=== PATIENT | male | born 1980 | race Caucasian/White ===

== ENCOUNTER 2021-08-22 07:13 | Outpatient (CLI) | payer MEDICAID, SELFPAY ==
[2021-08-22 07:05] VITALS: BP 106/71; PULSE 113; RESP 16; TEMP 37.3; O2SAT 97; BMI 40.3
[2021-08-22 07:55] VITALS: BP 108/64; PULSE 80; RESP 18; TEMP 37.1; O2SAT 92
[2021-08-22 08:55] VITALS: BP 111/76; PULSE 87; RESP 18; TEMP 36.9; O2SAT 94
== END 2021-08-22 07:14 | disposition home or self-care (01) ==
LOC: OPS 07:15
PROVIDERS: PCP Physician Assistant; Visit Provider Nurse Practitioner
DX: U07.1 COVID-19 (principal)
CPT/HCPCS: 96365

== ENCOUNTER 2021-09-15 22:31 | Emergency (ER) | payer MEDICAID, SELFPAY ==
[2021-09-15 22:50] VITALS: BP 126/89; PULSE 122; RESP 18; TEMP 36.9; O2SAT 94; BMI 38.7
--- NOTE | 2021-09-15 23:00 | W.ED.NAVMDI ---
HPI - Nausea/Vomiting/Diarrhea General: Chief complaint: Nausea/Vomiting/Diarrhea Stated complaint: n/v post eating bad mushrooms Time Seen by Provider: 09/15/21 22:34 Source: patient Mode of arrival: ambulatory Limitations: no limitations History of Present Illness: HPI Narrative: 41-year-old male who patient was eating mushrooms and then found out that he had actually taken Mehreen and mushrooms daughter Elicia Turner. He states he ate about 7:00 starting roughly 2 to 3 hours ago he started having severe nausea vomiting. His ate the same mushrooms and here with similar complaints as well. He has got some abdominal cramping. Denies any fevers. Associated nausea: Yes Associated symtoms: Reports nausea; Denies chest pain, dysuria or headache(s) Review of Systems Const: Denies: fever(s), chills, body aches or change in appetite Eyes: Denies: blurry vision or eye discomfort ENMT: Denies: throat pain or dental pain Card: Denies: chest pain Resp: Denies: dyspnea GI: Reports: nausea and vomiting : Denies: dysuria Musc: Denies: neck pain or back pain Skin/Breast: Denies: rash Neuro: Denies: headache(s) Psych: Denies: depression Alexis/Lymph: Denies: easy bruising All/Imm: Denies: urticaria PFS ED PFSH: Social History (Updated 12/04/19 @ 16:28 by Mary Kenny RN) Smoking and tobacco status: never smoked Physical Exam Const: COMMON NORMALS: no acute distress, patient oriented x3 and healthy appearing HENMT: COMMON NORMALS: normocephalic and atraumatic HEAD & SCALP: normocephalic and atraumatic Eye: COMMON NORMALS: Equal, round and reactive pupils present and EOMs intact bilaterally PUPIL: Yes Equal, round and reactive pupils present Neck/C-Spine: COMMON NORMALS: full ROM and supple Chest: COMMONS NORMALS: normal inspection of the chest and normal palpation of entire chest wall Resp: COMMON NORMALS: normal respiratory effort, No retractions, No use of accessory muscles and clear to auscultation bilaterally AUSCULTATION: clear to auscultation bilaterally Cardio: COMMON NORMALS: regular rate, regular rhythm and No murmurs present (Cardio) RATE: regular rate RHYTHM: regular rhythm GI: COMMON NORMALS: Normal to inspection, nondistended, normoactive bowel sounds present, Soft to palpation, non-tender and no masses PALPATION: Yes Soft to palpation Extremity: COMMON NORMALS: normal to inspection and full ROM Neuro: COMMON NORMALS: patient oriented x3, moves all extremities and no focal motor deficits Psych: COMMON NORMALS: mental status grossly normal, Normal thought process present and cooperative THOUGHT PROCESS: Normal thought process present Skin: COMMON NORMALS: no rashes or lesions noted and no wounds GENERAL SKIN EXAM: no rashes or lesions noted Course Vital Signs: Vital signs: Vital Signs Temperature 98.4 F 09/15/21 22:50 Pulse Rate 106 H 09/15/21 23:45 Respiratory Rate 18 09/15/21 23:45 Blood Pressure 124/77 09/15/21 23:45 Pulse Oximetry 92 09/15/21 23:45 MDM - Nausea/Vomiting/Diarrhea MDM Narrative: Medical decision making narrative: Patient presents here with vomiting from food poisoning. He is well-appearing here and has no signs of any toxic effects he feels improved here after Reglan. Will prescribe Zofran for home he is to follow-up with PCP and return if worsening. Lab Data: Labs: Lab Results 09/15/21 09/15/21 23:20 23:20 WBC 16.9 10^3/uL H 10 ^3/uL (4.0-10.0) RBC 4.72 10^6/uL 10^6 /uL (4.1-5.3) Hgb 14.9 g/dL g/dL (11.7-16.6) Hct 43.2 % % (42.0-52.0) MCV 91.5 fl fl (80-94) MCH 31.6 pg pg (28.0-34.0) MCHC 34.5 g/dL g/dL (30.0-36.0) RDW 13.8 % % (12.1-15.1) Plt Count 431 10^3/cmm H 10 ^3/cmm (130-400) MPV 9.5 fL fL (7.4-10.4) Neut % (Auto) 66.8 % % Lymph % (Auto) 25.1 % % [place] % (Auto) 5.9 % % Eos % (Auto) 1.1 % % Baso % (Auto) 0.6 % % Neut # (Auto) 11.29 10^3/uL H 1 0^3/uL (1.8-7.7) Lymph # (Auto) 4.3 10^3/uL 10^3/ uL (0.8-4.8) [place] # (Auto) 1.0 10^3/uL H 10^ 3/uL (0.2-0.9) Eos # (Auto) 0.2 10^3/uL 10^3/ uL (0.0-0.8) Baso # (Auto) 0.1 10^3/uL 10^3/ uL (0.0-0.1) Nucleated RBC % (a uto) 0 % % Nucleated RBCs # 0.0 /100WBC /100W BC Sodium 141 mmol/L mmol/L (136-145) Potassium 3.5 mmol/L mmol/L (3.5-5.1) Chloride 106 mmol/L mmol/L (98-107) Carbon Dioxide 23 mmol/L mmol/L (22-29) Anion Gap 15.5 (5-19) BUN 13 mg/dL mg/dL (6-20) Creatinine 0.7 mg/dL mg/dL (0.7-1.2) GFR Calculation 123.7 mL/min mL/m in (90-130) Glucose 186 mg/dL H mg/dL (65-115) Calculated Osmolal ity 297 mOsm/kg H mOs m/kg (285-295) Calcium 8.2 mg/dL L mg/dL (8.5-10.5) Total Bilirubin 0.3 mg/dL mg/dL (0.15-1.2) AST 19 U/L U/L (0-40) ALT 31 U/L U/L (0-41) Alkaline Phosphata se 80 IU/L IU/L (40-130) Total Protein 6.6 g/dL g/dL (6.6-8.7) Albumin 3.9 g/dL g/dL (3.5-5.2) Globulin 2.7 g/dL g/dL (1.3-4.6) Discharge Plan Discharge Patient Disposition: Home Clinical Impression: Food poisoning, Vomiting Condition: Stable Prescriptions: New ondansetron 4 mg tablet,disintegrating 4 mg PO Q6H PRN (Reason: nausea and vomiting) Qty: 14 RF: 0 No Action azithromycin 250 mg tablet See Rx Instructions PO .COMPLEX Qty: 6 RF: 0 Discharge Orders: Discharge ED (Routine); Ordered 09/16/21 Ordered By: Moises Gage Referrals: Yisel Leon PA [Primary Care Provider] - 1-3 days Discharge Diet: Advance as tolerated Discharge Activity: Resume usual activity Patient Instructions: Acute Nausea and Vomiting (ED) Coding Level of Care Code ED Processor Solid Propellant for Chg Fwd Exam Comprehensive
[2021-09-15 23:34] LABS: Basophils # 0.1 10^3/uL (0.0-0.1); Basophils % 0.6 %; Eosinophils # 0.2 10^3/uL (0.0-0.8); Eosinophils % 1.1 %; Hematocrit 43.2 % (42.0-52.0); Hemoglobin 14.9 g/dL (11.7-16.6); Lymphocytes # 4.3 10^3/uL (0.8-4.8); Lymphocytes % 25.1 %; Mean Corpuscular HGB Conc 34.5 g/dL (30.0-36.0); Mean Corpuscular Hemoglobin 31.6 pg (28.0-34.0); Mean Corpuscular Volume 91.5 fl (80-94); Mean Platelet Volume 9.5 fL (7.4-10.4); Monocytes % 5.9 %; Neutrophils # 11.29 10^3/uL (1.8-7.7); Neutrophils % 66.8 %; Nucleated Red Blood Cells % 0 %; Platelet Count 431 10^3/cmm (130-400); Red Blood Count 4.72 10^6/uL (4.1-5.3); Red Cell Distribution Width 13.8 % (12.1-15.1); White Blood Count 16.9 10^3/uL (4.0-10.0)
[2021-09-15] MEDS: ondansetron 2 mg/ML SDV 2 mL 4 MG IVP (23:39)
[2021-09-15] MEDS: sodium chloride 0.9% 1,000 ML 999 ML IV (23:40)
[2021-09-15] MEDS: metoclopramide 5 mg/mL SDV 2 mL 10 MG IVP (23:42)
[2021-09-15] MEDS: diphenhydrAMINE 50 mg/mL SDV 1mL IVP (23:42)
[2021-09-15 23:45] VITALS: BP 124/77; PULSE 106; RESP 18; O2SAT 92
--- NOTE | 2021-09-15 23:49 | PC.NURSE ---
pt states that he was driving down the road and pulled over for some mushrooms. Pt and his family took them home and cooked them and ate them. Pt and family members became sick and started vomiting.
[2021-09-15 23:59] LABS: Alanine Aminotransferase 31 U/L (0-41); Albumin Level 3.9 g/dL (3.5-5.2); Alkaline Phosphatase 80 IU/L (40-130); Anion Gap 15.5 (5-19); Aspartate Amino Transferase 19 U/L (0-40); Blood Urea Nitrogen 13 mg/dL (6-20); Calcium 8.2 mg/dL (8.5-10.5); Carbon Dioxide 23 mmol/L (22-29); Chloride 106 mmol/L (98-107); Globulin 2.7 g/dL (1.3-4.6); Glomerular Filtration Rate 123.7 mL/min (90-130); Glucose 186 mg/dL (65-115); Osmolality Calculated 297 mOsm/kg (285-295); Potassium 3.5 mmol/L (3.5-5.1); Sodium 141 mmol/L (136-145); Total Bilirubin 0.3 mg/dL (0.15-1.2); Total Protein 6.6 g/dL (6.6-8.7)
[2021-09-16 01:05] VITALS: BP 120/60; PULSE 80; RESP 18; O2SAT 91
== END 2021-09-16 01:07 | disposition home or self-care (01) ==
PROVIDERS: Emergency Provider Emergency Medicine; PCP Physician Assistant
DX: A05.9 Bacterial foodborne intoxication, unspecified (principal)
CPT/HCPCS: 80053; 85025; 96361; 96374; 96375; 99284; J1200; J2405; J2765; J7030

== ENCOUNTER 2023-01-08 09:45 | Emergency (ER) | payer MEDICAID, SELFPAY ==
[2023-01-08 09:57] VITALS: BP 127/72; PULSE 76; RESP 16; TEMP 36.7; O2SAT 97
--- NOTE | 2023-01-08 10:26 | XRR_ITS ---
PROCEDURE INFORMATION: Exam: XR Lumbosacral Spine Exam date and time: 01/08/2023 11:40 AM Age: 42 years old Clinical indication: Low back pain TECHNIQUE: Imaging protocol: Radiologic exam of the lumbosacral spine. Views: 2 or 3 views. COMPARISON: CR XR lumbar spine min 4V [id number] 11/18/2022 11:27 AM FINDINGS: Bones/joints: No fracture, malalignment or other acute abnormality is seen in the lumbar spine. Mild degenerative changes are present with mild disc space narrowing and scattered osteophytes. Soft tissues: Unremarkable. XR/XR lumbar spine 2-3V* [id number] IMPRESSION: No acute abnormality.
[2023-01-08 14:40] LABS: Add Urine Microscopic? NO; Charge for UA Resulting for Rev
[2023-01-08 15:16] LABS: Bilirubin Urine Neg (Negative); Blood Urine Neg (Negative); Glucose Urine UA 4+ (Normal); Ketones Urine Negative (Negative); Leukocyte Esterase Urine Negative (Negative); Nitrate Urine Negative (Negative); Protein Urine Neg (Negative); Urine Appearance Clear (CLEAR); Urine Color Yellow (Yellow); Urobilinogen Urine Neg (Negative); pH Urine 6 (5-7)
--- NOTE | 2023-01-08 15:18 | W.ED.BACK ---
Documented by User: LUIS Olson 01/08/23 15:46 HPI - Back Pain/Injury General: Chief Complaint: Back Pain/Injury Stated Complaint: Back pain Time Seen by Provider: 01/08/23 10:30 History of Present Illness: Patient is in for low back pain x4 days. Patient reports that he was walking on the ice on Thursday and slipped but did not fall. He reports that his back has been hurting progressively worse since that time. He reports it is worse with twisting or trying to turn or roll over in bed. He denies any traumatic injury to the back. He denies fever, chills, nausea, vomiting. He denies any pain with urination, burning, frequency. He denies saddle anesthesia, loss of bowel or bladder continence. He denies any history of kidney stones. Associated symptoms: Deny abdominal pain, chills, dysuria, fever(s), nausea, urinary urgency or vomiting Review of Systems Const: Denies: fever(s), chills or body aches Resp: Denies: dyspnea, productive cough or non-productive cough GI: Denies: abdominal pain, nausea or vomiting : Denies: flank pain, dysuria, urinary frequency, urinary urgency or urinary hesitancy Musc: Reports: back pain Neuro: Denies: headache(s), numbness in extremities or weakness in extremities PFSH ED PFSH: Social History Smoking and tobacco status: never smoked Physical Exam Const: COMMON NORMALS: patient oriented x3 and alert OTHER: Patient is angry when I walked in the room to do the exam because of his wait time at the ER. He is frustrated with questions I am asking for the HPI. Resp: COMMON NORMALS: normal respiratory effort and No use of accessory muscles Back/Pelvis: OTHER: Patient points to his mid low back as his area of concern. There is no obvious bony or soft tissue deformity appreciated to the lumbar region. No lumbar vertebral point tenderness appreciated, no step-offs appreciated. Palpation of the area does not reproduce pain complaint. Turning side to side reproduces patient's pain complaint. Patient is standing and has a normal gait. Neuro: COMMON NORMALS: patient oriented x3 SENSORIUM/ORIENTATION: Yes alert Course Vital Signs: Vital signs: Vital Signs Temperature 98.1 F 01/08/23 09:57 Pulse Rate 78 01/08/23 15:59 Respiratory Rate 16 01/08/23 15:59 Blood Pressure 132/74 01/08/23 15:59 Pulse Oximetry 99 01/08/23 15:59 Oxygen Delivery Me thod 01/08/23 09:57 MDM - Back Pain/Injury Medical Decision Making Differentials include lumbago, lumbar strain, bulging disc, disc herniation, glucosuria, renal stone Urine is negative for hematuria and patient does not have CVA tenderness making renal stone less likely Patient does not exhibit any neurologic symptoms of spinal cord compression. Patient is standing and bearing weight with a normal gait. X-ray does not show any acute abnormality. I advised patient that I recommend conservative treatment with NSAIDs and muscle relaxant medications. Patient becomes very angry and states that this is not a muscle issue. He wants an MRI or something done now . We discussed typical process and evaluation of back pain. We discussed red flags for acute or emergent symptoms of back pain and that he does not exhibit any at this time. We discussed conservative treatment and typical course of follow-up following up with primary care provider and if pain is persisting pursuing possible evaluation with an MRI on an outpatient basis. Patient was agreeable but then made the statement that he and his will be driving to [facility] so somebody would do something now . Norflex and Toradol is administered here today. I withheld steroid at this time. Patient has 4+ glucose in his urine and reports that he wants no further evaluation of this at this time because he is being evaluated for prediabetes and he already knows its there. He states that he ate just before coming in. Patient's spouse is here to drive him. Advised him to follow-up with primary care provider. Return to the ER as needed for new or worsening symptoms. Patient is discharged in stable condition. Patient is angry but calm. Labs Radiology Impressions Lumbar Spine X-Ray 01/08/23 10:26 IMPRESSION: No acute abnormality. Laboratory Results Urine Color Yellow (Yellow) 01/08/23 14:34 Urine Appearance Clear (CLEAR) 01/08/23 14:34 Urine pH 6 (5-7) 01/08/23 14:34 Ur Specific [place] 1.020 (1.005-1.030) 01/08/23 14:34 Urine Protein Neg (Negative) 01/08/23 14:34 Urine Glucose (UA) 4+ (Normal) H 01/08/23 14:34 Urine Ketones Negative (Negative) 01/08/23 14:34 Urine Blood Neg (Negative) 01/08/23 14:34 Urine Nitrate Negative (Negative) 01/08/23 14:34 Urine Bilirubin Neg (Negative) 01/08/23 14:34 Urine Urobilinogen Neg mg/dL (Negative) 01/08/23 14:34 Ur Leukocyte Esterase Negative (Negative) 01/08/23 14:34 Discharge Plan Discharge Patient Disposition: Home Clinical Impression: Strain of lumbar region Condition: Stable Prescriptions: New cyclobenzaprine 10 mg tablet 10 mg PO TID PRN (Reason: muscle spasm) Qty: 6 0RF Rx Instructions: not to start until 01/09/2023 No Action azithromycin 250 mg tablet See Rx Instructions PO .COMPLEX Qty: 6 0RF Rx Instructions: take 500 mg today (day 1), then 250 mg for 4 days (days 2-5) PO ondansetron 4 mg tablet,disintegrating 4 mg PO Q6H PRN (Reason: nausea and vomiting) Qty: 14 0RF Discharge Orders: Discharge ED (Routine); Ordered 01/08/23 Ordered By: Ely Sauer Referrals: Yisel Leon PA [Primary Care Provider] - Discharge Diet: Usual diet Discharge Activity: Increase activity as tolerated Patient Instructions: Muscle Strain (ED), Lower Back Exercises (ED) Activity Restrictions/Additional Instructions: Your x-rays did not show any acute abnormality. I recommend conservative treatment doing conservative treatments to include alternating ice and heat, rest, nonsteroidal anti-inflammatories, muscle relaxant medications. You received a muscle relaxant medication and Toradol in the ER tonight. Do not start ibuprofen or your muscle relaxer prescription until tomorrow 01/09/2023. Do not drive after taking a muscle relaxer, do not drink alcohol with muscle relaxers, do not take any other medications that make you sleepy with this medication. I recommend gentle stretches. Warm moist heat. Follow-up with your primary care provider next week for continued evaluation and determination of further plan of care. Return to the ER as needed for any new or worsening symptoms Coding Level of Care Code ED Side Stitching Machine Operator for Chg Fwd Documented by User: Tigre Winkler DO 01/13/23 07:36 HPI - Back Pain/Injury General: Chief Complaint: Back Pain/Injury Stated Complaint: Back pain Time Seen by Provider: 01/08/23 10:30 PFSH ED PFSH: Social History Smoking and tobacco status: never smoked Course Vital Signs: Vital signs: Vital Signs Temperature 98.1 F 01/08/23 09:57 Pulse Rate 78 01/08/23 15:59 Respiratory Rate 16 01/08/23 15:59 Blood Pressure 132/74 01/08/23 15:59 Pulse Oximetry 99 01/08/23 15:59 Oxygen Delivery Me thod 01/08/23 09:57 MDM - Back Pain/Injury Medical Decision Making Differentials include lumbago, lumbar strain, bulging disc, disc herniation, glucosuria, renal stone Urine is negative for hematuria and patient does not have CVA tenderness making renal stone less likely Patient does not exhibit any neurologic symptoms of spinal cord compression. Patient is standing and bearing weight with a normal gait. X-ray does not show any acute abnormality. I advised patient that I recommend conservative treatment with NSAIDs and muscle relaxant medications. Patient becomes very angry and states that this is not a muscle issue. He wants an MRI or something done now . We discussed typical process and evaluation of back pain. We discussed red flags for acute or emergent symptoms of back pain and that he does not exhibit any at this time. We discussed conservative treatment and typical course of follow-up following up with primary care provider and if pain is persisting pursuing possible evaluation with an MRI on an outpatient basis. Patient was agreeable but then made the statement that he and his will be driving to [place] so somebody would do something now . Norflex and Toradol is administered here today. I withheld steroid at this time. Patient has 4+ glucose in his urine and reports that he wants no further evaluation of this at this time because he is being evaluated for prediabetes and he already knows its there. He states that he ate just before coming in. Patient's spouse is here to drive him. Advised him to follow-up with primary care provider. Return to the ER as needed for new or worsening symptoms. Patient is discharged in stable condition. Patient is angry but calm. Chart reviewed and patient discussed with midlevel. Agree with assessment and plan. Labs Radiology Impressions Lumbar Spine X-Ray 01/08/23 10:26 IMPRESSION: No acute abnormality. Laboratory Results Urine Color Yellow (Yellow) 01/08/23 14:34 Urine Appearance Clear (CLEAR) 01/08/23 14:34 Urine pH 6 (5-7) 01/08/23 14:34 Ur Specific [place] 1.020 (1.005-1.030) 01/08/23 14:34 Urine Protein Neg (Negative) 01/08/23 14:34 Urine Glucose (UA) 4+ (Normal) H 01/08/23 14:34 Urine Ketones Negative (Negative) 01/08/23 14:34 Urine Blood Neg (Negative) 01/08/23 14:34 Urine Nitrate Negative (Negative) 01/08/23 14:34 Urine Bilirubin Neg (Negative) 01/08/23 14:34 Urine Urobilinogen Neg mg/dL (Negative) 01/08/23 14:34 Ur Leukocyte Esterase Negative (Negative) 01/08/23 14:34 Discharge Plan Discharge Patient Disposition: Home Clinical Impression: Strain of lumbar region Condition: Stable Prescriptions: New cyclobenzaprine 10 mg tablet 10 mg PO TID PRN (Reason: muscle spasm) Qty: 6 0RF Rx Instructions: not to start until 01/09/2023 No Action azithromycin 250 mg tablet See Rx Instructions PO .COMPLEX Qty: 6 0RF Rx Instructions: take 500 mg today (day 1), then 250 mg for 4 days (days 2-5) PO ondansetron 4 mg tablet,disintegrating 4 mg PO Q6H PRN (Reason: nausea and vomiting) Qty: 14 0RF Discharge Orders: Discharge ED (Routine); Ordered 01/08/23 Ordered By: Ely Sauer Referrals: Yisel Leon PA [Primary Care Provider] - Discharge Diet: Usual diet Discharge Activity: Increase activity as tolerated Patient Instructions: Muscle Strain (ED), Lower Back Exercises (ED) Activity Restrictions/Additional Instructions: Your x-rays did not show any acute abnormality. I recommend conservative treatment doing conservative treatments to include alternating ice and heat, rest, nonsteroidal anti-inflammatories, muscle relaxant medications. You received a muscle relaxant medication and Toradol in the ER tonight. Do not start ibuprofen or your muscle relaxer prescription until tomorrow 01/09/2023. Do not drive after taking a muscle relaxer, do not drink alcohol with muscle relaxers, do not take any other medications that make you sleepy with this medication. I recommend gentle stretches. Warm moist heat. Follow-up with your primary care provider next week for continued evaluation and determination of further plan of care. Return to the ER as needed for any new or worsening symptoms Coding Level of Care Code ED Side Stitching Machine Operator for Lorraine Esparza
[2023-01-08] MEDS: ketorolac 60 mg/2 mL INJ IM (15:51)
[2023-01-08] MEDS: orphenadrine 30 mg/mL Inj 2 mL 60 MG IM (15:51)
[2023-01-08 15:59] VITALS: BP 132/74; PULSE 78; RESP 16; O2SAT 99
== END 2023-01-08 16:00 | disposition home or self-care (01) ==
PROVIDERS: Emergency Provider Nurse Practitioner Family; PCP Physician Assistant
DX: S39.012A Strain of muscle, fascia and tendon of lower back, initial encounter (principal); W18.49XA Other slipping, tripping and stumbling without falling, initial encounter
CPT/HCPCS: 72100; 81003; 96372; 99284; J1885; J2360

== ENCOUNTER 2023-01-15 11:29 | Outpatient (CLI) | payer MEDICAID, SELFPAY ==
--- NOTE | 2023-01-15 11:45 | MR_ITS ---
WS: [id number] EXAMINATION: MR ankle LT wo con* [id number] ORDER DATE: 01/15/2023 11:44 AM COMPARISON: None. HISTORY: osteochondral defect of the left ankle CONTRAST: None. TECHNIQUE: Axial proton density fat sat, axial T1, sagittal proton density, sagittal STIR, coronal T2 fat sat, and coronal T1 sequences performed. After contrast, axial T1 fat sat, coronal T1 fat sat, and sagittal T1 fat sat were performed. FINDINGS: Tiny osteochondral defect involving the lateral talar dome. Tiny amount of edema. No subcho ndral collapse. Normal deltoid ligament. Edema with tear and laxity of the ATF. Tibiofibular ligament s appear intact. Small amount of fluid in the anterolateral gutter. Normal ankle mortise. Normal medial and lateral malleolus. Slight irregularity at the tip of the late ral malleolus. No visualized avulsion fractures. Plantar calcaneal spurring. Distal Achilles is ha l in appearance. Normal peroneal tendons. Small amount of tenosynovitis along the peroneal tendon she ath. Normal extensor and flexor compartment tendons. Normal talocalcaneal articulation. Normal navicu lar. Normal cuboid. Base of the 5th metatarsal appears normal. MR/MR ankle LT wo con* [id number] IMPRESSION: 1. High-grade suspected complete tear of the ATF. Small amount of edema in thi s area. Small amount of fluid in the anterolateral gutter. 2. No significant widening of the medial or lateral malleolus. Normal ankle mo rtise. Slight irregularity at the tip of the fibula. 3. Tiny osteochondral defect in the lateral talar dome with a tiny amount of e lara. No subchondral collapse or AVN. 4. Normal extensor and flexor compartment tendons. 5. Small amount of tenosynovitis along the peroneal tendon sheath. 6. No other acute findings.
== END 2023-01-15 11:30 | disposition home or self-care (01) ==
LOC: RAD 11:31
PROVIDERS: PCP Physician Assistant; Visit Provider Podiatrist Foot & Ankle Surgery
DX: M95.8 Other specified acquired deformities of musculoskeletal system (principal); M25.372 Other instability, left ankle; M25.572 Pain in left ankle and joints of left foot
CPT/HCPCS: 73721

== ENCOUNTER 2023-09-23 06:00 | Day surgery (SDC) | payer MEDICAID, SELFPAY ==
[2023-09-23] VITALS (10 sets, daily range): BP systolic 123–144; BP diastolic 73–103; PULSE 69–90; RESP 15–25; TEMP 36.1–36.6; O2SAT 91–100; BMI 36.3
[2023-09-23] MEDS: gabapentin 300 mg Capsule PO (06:19)
[2023-09-23] MEDS: acetaminophen 1,000 MG/100 ML PIGGYBACK 400 MG IV (06:21)
[2023-09-23] MEDS: sodium chloride 0.9% 1,000 ML 30 ML IV (06:36)
--- NOTE | 2023-09-23 06:42 | P.ANESASSM_ITS ---
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 Operation Date: 09/23/23 07:00 Proposed Procedures p Ankle Arthroscopy(Left) - Joshua Regalado DPM s Brostrom Procedure(Left) - Joshua Regalado DPM s :?Left ankle scope with OCD repair, Left ankle modified brostrom ligament repair and Left ankle excision of loose body, CPT 37487, CPT 63733 and CPT 85035, M93.272, S93.492D, M24.072(Left) - Joshua Regalado DPM Last intake: Intake Last Liquid Date 09/22/23 Last Liquid Time 23:00 Last Solid Date 09/22/23 Last Solid Time 23:00 Social No alcohol and No tobacco Smokes marijuana daily Exam alert, oriented x 3, clear to auscultation bilaterally and regular rate & rhythm Airway Submandibular: within normal limits Cervical ROM: within normal limits Mallampati: Class II Dentition: chipped and full History/ROS No significant history except as noted Pulmonary None reported CV/HEM None reported None reported Hepatic None reported GI Gastroesophageal Reflux Disease Metabolic Morbid Obesity [facility] [place] None reported Neuropsych None reported Anesthetic Plan ASA status: 2 Anesthesia: General Medications/Allergies Home Medications Medication Instructions Recorded Confirmed Last Taken Type omeprazole 40 mg capsule,delayed 40 mg PO DAILY acid reflux 09/22/23 09/22/23 09/22/23 History release hydrocodone 5 mg-acetaminophen 325 1 tab PO Q6H PRN pain #28 tabs 09/23/23 Unknown Rx mg tablet Allergies Allergy/AdvReac Type Severity Reaction Status Date / Time No Known Allergies Allergy Verified 09/08/23 08:52 Current Medications Generic Name Dose Route Start Last Admin Trade Name Freq PRN Reason Stop Dose Admin Sodium Chloride 1,000 mls @ 30 mls/hr 09/23/23 06:15 09/23/23 06:36 Sodium Chloride 0.9% IV 10/26/23 06:14 30 mls/hr .Q24H AMINAH Administration [facility] Anesthesia Social History Smoking and tobacco/nicotine status: never used tobacco/nicotine Data Anesthesia Cardiac Studies: No Data to Display Documented by User: Miguel Ángel Sweeney 09/23/23 07:21 Pre-Anesthetic Assessment Familial anesthetic complications: none Was Beta Yadira taken within 24 hours: N/A Was Clonidine taken within 24 hours: N/A Medications/Allergies Home Medications Medication Instructions Recorded Confirmed Last Taken Type omeprazole 40 mg capsule,delayed 40 mg PO DAILY acid reflux 09/22/23 09/22/23 09/22/23 History release hydrocodone 5 mg-acetaminophen 325 1 tab PO Q6H PRN pain #28 tabs 09/23/23 Unknown Rx mg tablet Allergies Allergy/AdvReac Type Severity Reaction Status Date / Time No Known Allergies Allergy Verified 09/08/23 08:52 [facility] Anesthesia Social History Smoking and tobacco/nicotine status: never used tobacco/nicotine Data Anesthesia Cardiac Studies: No Data to Display
--- NOTE | 2023-09-23 06:46 | W.PM.OPSUD ---
Surgery/Procedure H&P Update DATE OF PROCEDURE: September 23, 2023 DATE H&P PERFORMED: 09/08/23 CHANGES TO PREVIOUS DOCUMENTATION: No changes PREOP DIAGNOSIS: Left ankle OCD with chronic instability PLANNED PROCEDURE: Operation Date: 09/23/23 07:00 Proposed Procedures p Ankle Arthroscopy(Left) - Joshua Regalado DPM s Brostrom Procedure(Left) - Joshua Regalado DPM s :?Left ankle scope with OCD repair, Left ankle modified brostrom ligament repair and Left ankle excision of loose body, CPT 97082, CPT 44880 and CPT 66229, M93.272, S93.492D, M24.072(Left) - Joshua Regalado DPM
[2023-09-23] MEDS: ceFAZolin 2,000 MG in sodium chloride 0.9% (plus) 50 ML 100 MG IV (06:59)
--- NOTE | 2023-09-23 07:21 | ANES.PROC ---
Anesthesia Procedures Procedure/Date: 09/23/23 Nerve Block ^: Nerve Block 1: Main Anesthesia: general anesthesia Time Out Performed: Yes Consent: requested by attending/covering physician, from patient, risks and benefits reviewed and patient agrees to proceed Nerve block location: popliteal (left) Anesthesia monitors applied: pulse oximetry, EKG, BP cuff and oxygen Nerve block position: supine Anesthetic Used: ropivicaine 0.5% Amount of anesthesia used (mL): 30 Ultrasound used to: recognize landmarks Nerve Stimulator Used?: No Interscalene/Femoral BLK: 4 stimuplex 21 g needle used for position and inplane approach Injection: neg aspiration of heme Patient Tolerated Procedure: well Complications: none
[2023-09-23] MEDS: BUPivacaine 0.5% INJ 30 mL 10 ML INJECTION (07:25)
--- NOTE | 2023-09-23 09:15 | W.PM.BPON ---
Date of procedure: 09/23/23 Surgeon name: Dr. Joshua Regalado DPM Market Research Coordinator(s) name(s): None Procedure(s) performed: Left ankle arthroscopy with OCD repair, modified brostrom with internal brace Description of findings: ATFL rupture, OCD lateral talar dome Estimated blood loss: 20cc Specimen(s) removed: none Post-operative diagnosis: Left ankle OCD, chronic ankle instability
--- NOTE | 2023-09-23 11:04 | P.OP_ITS ---
Operative Report Date of procedure: September 23, 2023 Pre-op diagnosis: Left ankle osteochondral defect, chronic ankle instability left ankle Post-op diagnosis: Same Post-op findings: Osteochondral defect to lateral talar dome of the left ankle. 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 Left ankle arthroscopy with osteochondral defect repair CPT 19170 2. Left ankle modified Brostr?m ligament repair CPT 19103 Implants: Internal brace, suture tack anchors x2 all from [employer] Surgeon: Joshua Regalado DPM Estimated blood loss: 20 cc Complications: None Findings: See above Procedure: Patient is a 43-year-old male that has a history of left ankle osteochondral defect and chronic ankle instability to the left ankle. The patient has had the aforementioned chief complaint for some time. Conservative treatment measures have been attempted and the patient has opted for surgical intervention at this time. A lengthy discussion regarding the procedure, including risks and complications has been had with the patient and is noted in the recent clinic note. Written and verbal consent have been obtained. All patient questions have been answered to the patient?s satisfaction. No written or verbal guarantees have been given or implied. The patient has been NPO since midnight. The history has been reviewed and the history and physical is current. The signed consent was confirmed and placed in the patient chart. Patient imaging has been reviewed and is consistent with the diagnosis. Under mild sedation, the patient was brought into the operating room and placed on the table in the supine position. IV antibiotics were given by the anesthesia team as preoperative surgical prophylaxis. General sedation was then performed by the anesthesiateam. A pneumatic tourniquet was then placed about the left thigh. The patient received a popliteal block by the anesthesia department in the preoperative area the operative extremity was then prepped and draped in the usual fashion. The extremity was then elevated and exsanguinated before the tourniquet was inflated to 325 mmHg. After inflation, the following procedure was then performed. Attention was directed to the left ankle where a 20 cc syringe with an 18-gauge needle was inserted into the ankle just medial to the tibialis anterior. The ankle was then insufflated with 20 cc of sterile saline. A #11 blade was then used to establish the anteromedial portal of the left ankle. Trocar and cannula were then inserted into the portal the trocar was removed and the arthroscope was inserted into the cannula. Standard ankle joint inspection was performed. There is noted to be significant synovitis within the ankle joint. There is also noted to be osteochondral defect to the lateral talar dome. Anterolateral portal was then established using a #11 blade in standard fashion. A 2.0 shaver was then inserted into the anterolateral portal and used to debride the ankle joint of synovitis. A curette was then inserted into the anterolateral portal to debride the osteochondral defect of the lateral talar dome. After removing the osteochondral defect the edge of the cartilage was saucerized using the 2.0 shaver. Next, a microfracture awl was used to microfracture the lateral talar dome osteochondral defect. After microfracture, the arthroscopic instruments were removed from the ankle joint and attention was directed to closure of the ankle joint portals. This was done using 4-0 nylon in horizontal mattress fashion. Attention was directed to the lateral left ankle where a 5 cm curvilinear incision was made to the anterior surface of the lateral malleolus. Dissection was carried down through subcutaneous and superficial fascia to the level of the ankle joint capsule. The ankle joint capsule was then incised and reflected anteriorly from the distal fibula. The anterior talofibular ligament was noted to be thickened with evidence of degeneration and fraying consistent with anterior talofibular ligament attenuation. Dissection was carried out anterior to the anterior talofibular ligament before the sinus tarsi guide was placed in the sinus tarsi. A K wire was driven through the guide and positioning of the wire was confirmed on C-arm imaging. Next a cannulated drill system was used to drill over the wire into the talus in preparation for the internal brace swivel lock anchor. After drilling, the drill hole was tapped before the internal brace swivel lock anchor was inserted into the talus per the manufacture protocol. Next, attention was directed to the anterior fibula where 2 separate holes were drilled for a 3.0 suture anchor from [employer]. The suture anchors were then inserted per the manufacture protocol. A third hole was then drilled into the fibula in between the prior drill holes. This hole was for fixation of the internal brace. Next, the suture anchors were passed through the anterior talofibular ligament after the redundancy of the ligament has been excised. With the ankle and dorsiflexion eversion the Brostr?m procedure was performed with the suture anchors. Next, the internal brace was fixated to the fibula. The ankle was held in neutral positioning for insertion of this anchor. The ankle was then assessed and stressed and was noted to be stable in comparison to the preoperative exam. The incision was then irrigated with copious amounts of sterile saline before attention was directed to closure. Deep tissue was closed with 3-0 Vicryl followed by subcuticular closure with 4-0 Vicryl and skin closed with 4-0 nylon in horizontal mattress fashion. The tourniquet was let down and good hyperemic response was noted to all digits of the left foot. The incision was dressed with Xeroform, 4 x 4 gauze, Kerlix before being placed in a well- padded below the knee posterior splint. The patient tolerated the procedure and anesthesia well and without complication. The patient was transported from the operating room to the r ecovery room with vital signs stable and vascular status intact to all digits of the left foot. The patient was given both written and verbal instructions to remain nonweightbearing to the operative extremity, to keep dressings/splint clean, dry and intact and to take pain medication as directed. The patient will follow-up in the outpatient setting at their scheduled appointment. The patient was discharged with my personal number and was instructed to call if any questions or issues should arise. They were discharged home once anesthesia criteria was met.
--- NOTE | 2023-09-23 13:26 | ANE.PACU2 ---
Inpatient post-anesthesia follow up: Airway intact: Yes Vital signs: Temperature 97.0 F Pulse Rate 76 Respiratory Rate 18 Blood Pressure 138/93 Pulse Oximetry 95 Oxygen Delivery Me thod Room Air Oxygen Flow Rate Fraction of Inspir ed Oxygen Hydration adequate: Yes Nausea and vomiting: No Pain level: 2 Mental status: Baseline
== END 2023-09-23 10:20 | disposition home or self-care (01) ==
PROVIDERS: PCP Physician Assistant; Visit Provider Podiatrist Foot & Ankle Surgery
PROC: (CPT 27698; principal; 2023-09-23 07:00)
PROC: (CPT 27698; 2023-09-23 07:00)
DX: M25.372 Other instability, left ankle (principal); M93.272 Osteochondritis dissecans, left ankle and joints of left foot; E66.01 Morbid (severe) obesity due to excess calories; Z68.36 Body mass index [BMI] 36.0-36.9, adult
CPT/HCPCS: 27698; 29891; C1713; J0131; J0690; J1100; J2250; J2405; J2704; J2795; J3010; J3490; J7030

== ENCOUNTER → 2023-10-07 14:21 | Outpatient (BNVA) | payer MEDICAID, SELFPAY | PROVIDERS: PCP Physician Assistant; Visit Provider Podiatrist Foot & Ankle Surgery | DX: M95.8 Other specified acquired deformities of musculoskeletal system; M25.372 Other instability, left ankle; Z87.828 Personal history of other (healed) physical injury and trauma | CPT/HCPCS: 73610 ==